=== PATIENT | female | born 1990 | race Caucasian/White ===

== ENCOUNTER 2016-12-02 12:00 | Outpatient (CLI) | payer OTHER ==
[~2016-12-02] VITALS: Ht 165.1 cm; Wt 98.1 kg
[~2016-12-02 12:00] MED LIST: ESCI20TA10 PO; FERR325T63 PO; IBUP800T PO; OXYC-302 PO; PREN1TAB52 PO; SENN-25 PO
[2016-12-02 12:10] VITALS: BP 114/74
== END 2016-12-02 13:47 | disposition home or self-care (01) ==
LOC: LDOP 12:00
PROVIDERS: ATTEND Obstetrics & Gynecology
DX: O26.893 Other specified pregnancy related conditions, third trimester (principal); R10.9 Unspecified abdominal pain; R10.2 Pelvic and perineal pain; Z3A.28 28 weeks gestation of pregnancy
CPT/HCPCS: 36415; 59025; 81001; 82731; 87077; 87086; 87186; 99211; G0463

== ENCOUNTER 2017-01-04 11:35 | Outpatient (CLI) | payer OTHER ==
[~2017-01-04] VITALS: Ht 167.6 cm; Wt 65.9 kg
[2017-01-04 11:50] VITALS: BP 111/54
[2017-01-04 12:13] LABS: AMNISURE NEGATIVE (NEGATIVE)
[2017-01-04 12:14] LABS: AMNI OBC PASS
[2017-01-04] MEDS ORDERED: TERBUTALINE 1 MG/ML, 1ML ONE (12:27)
[2017-01-04] MEDS ORDERED: TERBUTALINE 1 MG/ML, 1ML SQ ONE (12:30)
== END 2017-01-04 13:25 | disposition home or self-care (01) ==
LOC: LDOP 11:35
PROVIDERS: ATTEND Obstetrics & Gynecology
DX: O42.913 Preterm premature rupture of membranes, unspecified as to length of time between rupture and onset of labor, third trimester (principal); Z3A.33 33 weeks gestation of pregnancy
CPT/HCPCS: 59025; 84112; 96372; 99211; J3105; G0463

== ENCOUNTER 2017-01-19 20:34 | Outpatient (CLI) | payer OTHER ==
[~2017-01-19] VITALS: Ht 167.6 cm; Wt 65.9 kg
[2017-01-19 21:04] LABS: PATH.CAST-FLAG NOT PRESENT; SPERM-FLAG NOT PRESENT; SRC-FLAG NOT PRESENT; XTAL-FLAG NOT PRESENT; YLC-FLAG NOT PRESENT
[2017-01-19 21:15] VITALS: BP 120/69
[2017-01-19 21:23] LABS: AMNI OBC PASS; AMNISURE NEGATIVE (NEGATIVE)
[2017-01-19] MEDS ORDERED: PROMETHAZINE 25 MG/ML, 1ML IM ONE (22:00)
[2017-01-19] MEDS ORDERED: MEPERIDINE/PF 50 MG/ML IM PRN (22:00)
[2017-01-19] MEDS ORDERED: NITR100C56 PO (22:05)
[2017-01-19] MEDS ORDERED: MEPERIDINE/PF 100 MG/ML ONE (22:09)
[2017-01-19] MEDS ORDERED: PROMETHAZINE 25 MG/ML, 1ML ONE (22:09)
== END 2017-01-19 22:20 | disposition home or self-care (01) ==
LOC: LDOP 20:34
PROVIDERS: ATTEND Obstetrics & Gynecology
DX: O26.893 Other specified pregnancy related conditions, third trimester (principal); O62.9 Abnormality of forces of labor, unspecified; O99.513 Diseases of the respiratory system complicating pregnancy, third trimester; R10.9 Unspecified abdominal pain; J45.909 Unspecified asthma, uncomplicated; Z3A.35 35 weeks gestation of pregnancy
CPT/HCPCS: 59025; 81001; 84112; 87081; 87086; 99211; J2175; J2550; G0463

== ENCOUNTER 2017-01-27 11:28 | Outpatient (CLI) | payer OTHER ==
[~2017-01-27] VITALS: Ht 167.6 cm; Wt 66.3 kg
[~2017-01-27 11:28] MED LIST changes: +IBUP-1223 PO; -IBUP800T PO; +NITR100C56 PO
[2017-01-27 11:39] VITALS: BP 110/64
[2017-01-27] MEDS ORDERED: BETAMETHASONE 6 MG/ML, 5ML IM ONE (11:54)
[2017-01-27] MEDS ORDERED: BETAMETHASONE 6 MG/ML, 5ML IM SCH (12:00)
[2017-01-27] MEDS ORDERED: MEPERIDINE/PF 100 MG/ML ONE (14:20)
[2017-01-27] MEDS ORDERED: PROMETHAZINE 25 MG/ML, 1ML ONE (14:21)
[2017-01-27] MEDS ORDERED: PROMETHAZINE 25 MG/ML, 1ML IM ONE (14:30)
[2017-01-27] MEDS ORDERED: MEPERIDINE/PF 50 MG/ML IM PRN (14:30)
== END 2017-01-27 14:42 | disposition home or self-care (01) ==
LOC: LDOP 11:28
PROVIDERS: ATTEND Obstetrics & Gynecology
DX: O26.893 Other specified pregnancy related conditions, third trimester (principal); O21.9 Vomiting of pregnancy, unspecified; O62.9 Abnormality of forces of labor, unspecified; O99.513 Diseases of the respiratory system complicating pregnancy, third trimester; J45.909 Unspecified asthma, uncomplicated; R10.9 Unspecified abdominal pain; Z3A.36 36 weeks gestation of pregnancy
CPT/HCPCS: 59025; 96372; 99211; J0702; J2175; J2550; G0463

== ENCOUNTER 2017-02-09 11:07 | Outpatient (CLI) | payer OTHER ==
[~2017-02-09] VITALS: Ht 167.6 cm; Wt 68.2 kg
[2017-02-09 11:39] VITALS: BP 109/60
== END 2017-02-09 12:11 | disposition home or self-care (01) ==
LOC: LDOP 11:07
PROVIDERS: ATTEND Obstetrics & Gynecology
DX: O26.893 Other specified pregnancy related conditions, third trimester (principal); O99.513 Diseases of the respiratory system complicating pregnancy, third trimester; R10.9 Unspecified abdominal pain; J45.909 Unspecified asthma, uncomplicated; Z3A.35 35 weeks gestation of pregnancy
CPT/HCPCS: 59025; 99211; G0463

== ENCOUNTER 2017-02-16 05:39 | Inpatient (IN) | payer OTHER ==
[~2017-02-16] VITALS: Ht 167.6 cm; Wt 69.0 kg
[2017-02-16] MEDS ORDERED: OXYTOCIN 30U/ 0.9% NaCL 500ML 500 ML IV PRN (05:40)
[2017-02-16] MEDS ORDERED: OXYTOCIN 30U/ 0.9% NaCL 500ML 500 ML IV ONE (05:40)
[2017-02-16] MEDS ORDERED: D5%-LACTATED RINGERS 1,000 ML IV SCH (05:40)
[2017-02-16 05:55] VITALS: BP 108/64
[2017-02-16] MEDS ORDERED: SODIUM CITRATE/CITRIC ACID 30 ML UDC PO PRN (06:00)
[2017-02-16] MEDS ORDERED: ONDANSETRON 2MG/ML, 2ML IVPush PRN (06:00)
[2017-02-16] MEDS ORDERED: CALCIUM CARBONATE 500 MG TAB.CHEW PO PRN (06:00)
[2017-02-16] MEDS ORDERED: FENTANYL PF 100 MCG/2ML IVPush PRN (06:00)
[2017-02-16] MEDS ORDERED: TERBUTALINE 1 MG/ML, 1ML IVPush PRN ×2 (06:00)
[2017-02-16] MEDS ORDERED: FENTANYL PF 100 MCG/2ML IV PRN (06:00)
[2017-02-16] MEDS ORDERED: METOCLOPRAMIDE 5 MG/ML, 2ML IVPush PRN (06:00)
[2017-02-16] MEDS ORDERED: ALUMINUM/MAG/SIMETHICONE 30 ML UDC PO PRN (06:00)
[2017-02-16 06:08] LABS: HEMATOCRIT 29.6 % (34.6-47.8); HEMOGLOBIN 9.8 g/dL (11.7-16.4); WHITE BLOOD COUNT 6.2 x10^3/uL (3.4-10)
[2017-02-16 06:11] VITALS: BP 108/64
[2017-02-16] MEDS: LACTATED RINGERS 1,000 ML IV SCH ×3 (06:14→14:26)
[2017-02-16] MEDS ORDERED: OXYTOCIN 30U/ 0.9% NaCL 500ML 500 ML ONE (06:18)
[2017-02-16] MEDS ORDERED: PLEASE ENTER HEIGHT AND WEIGHT MC SCH (06:30)
[2017-02-16] MEDS ORDERED: CALCIUM CARBONATE 500 MG TAB.CHEW ONE (07:34)
[2017-02-16] MEDS ORDERED: BUPIVACAINE 0.25% ONE ×2 (09:52→09:57)
[2017-02-16] MEDS ORDERED: FENTANYL PF 100 MCG/2ML ONE (09:52)
[2017-02-16] MEDS ORDERED: FENTANYL/BUPIV./NS/PF 250 ML EPIDCONT ONE (09:52)
[2017-02-16] MEDS ORDERED: LIDOCAINE/PF 1.5%-EPI 1:200K, 30ML ONE (09:57)
[2017-02-16] MEDS ORDERED: ONDANSETRON 2MG/ML, 2ML ONE (10:50)
[2017-02-16] MEDS: OXYTOCIN 30U/ 0.9% NaCL 500ML 500 ML IV SCH ×2 (13:29→21:54)
[2017-02-16] MEDS ORDERED: MISOPROSTOL 200 MCG TABLET SL PRN (13:30)
[2017-02-16] MEDS ORDERED: IBUPROFEN 600 MG TABLET ONE (14:18)
[2017-02-16] MEDS: IBUPROFEN 600 MG TABLET PO PRN ×2 (14:25→20:21)
[2017-02-16 15:30] VITALS: BP 112/75
[2017-02-16] MEDS: OXYcodone/APAP 5/325MG TABLET PO PRN ×2 (15:51→20:21)
[2017-02-16 19:05] VITALS: BP 108/71
[2017-02-16] MEDS: DOCUSATE 100 MG CAPSULE PO PRN (20:21)
[2017-02-16 21:59] LABS: HEMATOCRIT 29.7 % (34.6-47.8); HEMOGLOBIN 9.8 g/dL (11.7-16.4); WHITE BLOOD COUNT 9.5 x10^3/uL (3.4-10)
[2017-02-17 00:05] VITALS: BP 108/65
[2017-02-17] MEDS: OXYcodone/APAP 5/325MG TABLET PO PRN ×3 (00:05→08:41)
[2017-02-17] MEDS: IBUPROFEN 600 MG TABLET PO PRN ×2 (02:17→07:47)
[2017-02-17 04:38] VITALS: BP 105/77
[2017-02-17] MEDS: LACTATED RINGERS 1,000 ML IV SCH (05:40)
[2017-02-17] MEDS ORDERED: PRENATAL VIT/IRON/FA 1 EACH TABLET ONE (07:44)
[2017-02-17] MEDS: DOCUSATE 100 MG CAPSULE PO PRN (07:47)
[2017-02-17 07:56] VITALS: BP_SYST 111; BP_SYST 115; BP_DIAS 74; BP_DIAS 79
[2017-02-17] MEDS ORDERED: PRENATAL VIT/IRON/FA 1 EACH TABLET PO SCH (09:00)
[2017-02-17] MEDS: OXYTOCIN 30U/ 0.9% NaCL 500ML 500 ML IV SCH (09:29)
[2017-02-17] MEDS ORDERED: IBUP-1222 PO (09:39)
[2017-02-17] MEDS ORDERED: OXYC-302 PO (09:39)
== END 2017-02-17 11:30 | disposition home or self-care (01) | DRG 775 ==
LOC: LDIP 05:39 → 2NW 15:17
PROVIDERS: ADMIT Obstetrics & Gynecology; ATTEND Obstetrics & Gynecology
PROC: 0KQM0ZZ Repair Perineum Muscle, Open Approach (ICD-10-PCS; principal; 2017-02-16)
PROC: 10E0XZZ Delivery of Products of Conception, External Approach (ICD-10-PCS; 2017-02-16)
PROC: 3E0S3CZ (ICD-10-PCS; 2017-02-16)
PROC: 00HU33Z Insertion of Infusion Device into Spinal Canal, Percutaneous Approach (ICD-10-PCS; 2017-02-16)
DX: O69.1XX0 Labor and delivery complicated by cord around neck, with compression, not applicable or unspecified (principal); O70.1 Second degree perineal laceration during delivery; Z37.0 Single live birth; Z3A.38 38 weeks gestation of pregnancy
CPT/HCPCS: 36415; 85025; 86850; 86900; J2405; J3490; J2590; J7120

== ENCOUNTER 2017-07-07 10:55 | Day surgery (SDC) | payer OTHER ==
[~2017-07-07] VITALS: Ht 162.6 cm; Wt 59.1 kg
[~2017-07-07 10:55] MED LIST changes: +IBUP-1222 PO
[2017-07-07] MEDS ORDERED: LACTATED RINGERS 1,000 ML IV SCH (11:11)
[2017-07-07 11:41] VITALS: BP 132/92
[2017-07-07 11:58] LABS: BASOPHILS # (AUTO) 0.03 x10^3/uL (0-0.1); BASOPHILS % (AUTO) 1 % (0-1); EOSINOPHILS # (AUTO) 0.47 x10^3/uL (0-0.4); EOSINOPHILS % (AUTO) 10 % (1-7); LYMPHOCYTES # (AUTO) 1.53 x10^3/uL (1-3.4); LYMPHOCYTES % (AUTO) 32 % (22-44); MD NO; MEAN CORPUSCULAR HEMOGLOBIN 29.4 pg (27.0-34.8); MEAN CORPUSCULAR HGB CONC 33.3 g/dL (32.4-35.8); MEAN CORPUSCULAR VOLUME 88.3 fL (80-100); MEAN PLATELET VOLUME 7.6 fL (7.4-10.4); MONOCYTES # (AUTO) 0.42 x10^3/uL (0.2-0.8); MONOCYTES % (AUTO) 9 % (2-9); NEUTROPHILS # (AUTO) 2.38 x10^3/uL (1.8-6.8); NEUTROPHILS % (AUTO) 49 % (42-75); PLATELET COUNT 221 x10^3/uL (130-400); RED BLOOD COUNT 4.49 x10^6/uL (3.82-5.3); RED CELL DISTRIBUTION WIDTH 15.6 % (9.6-15.2)
[2017-07-07] MEDS ORDERED: PLEASE ENTER HEIGHT AND WEIGHT MC SCH (12:00)
[2017-07-07 12:07] LABS: ANION GAP 10 mmol/L (5-15); CALCIUM 8.7 mg/dL (8.5-10.1); CHLORIDE 106 mmol/L (98-107)
[2017-07-07 12:12] LABS: CREATININE 0.59 mg/dL (0.55-1.02)
[2017-07-07] MEDS ORDERED: BUPIVACAINE/PF 0.25% ONE (12:29)
[2017-07-07] MEDS ORDERED: EPINEPHRINE 1 MG/ML, 1ML ONE (12:29)
[2017-07-07] MEDS ORDERED: SILVER NITRATE STICK TP ONE ×2 (12:30→13:19)
[2017-07-07] MEDS ORDERED: MIDAZOLAM 1 MG/ML, 2ML ONE (12:30)
[2017-07-07] MEDS ORDERED: FENTANYL PF 250 MCG/5ML ONE (12:30)
[2017-07-07] MEDS ORDERED: PROPOFOL 10 MG/ML, 20ML ONE (12:31)
[2017-07-07] MEDS ORDERED: ROCURONIUM 10 MG/ML,10ML ONE (12:31)
[2017-07-07] MEDS ORDERED: SODIUM CHLORIDE 0.9% PF 10ML ONE (12:32)
[2017-07-07] MEDS ORDERED: CEFAZOLIN 1,000 MG ONE ×2 (12:32)
[2017-07-07] MEDS ORDERED: GLYCOPYRROLATE 0.4 MG/2 ML, 2ML ONE ×2 (12:32)
[2017-07-07] MEDS ORDERED: NEOSTIGMINE 1 MG/ML, 10ML ONE (12:32)
[2017-07-07] MEDS ORDERED: DEXAMETHASONE 4 MG/ML, 1ML ONE ×2 (12:33)
[2017-07-07] MEDS ORDERED: ONDANSETRON 2MG/ML, 2ML ONE (12:33)
[2017-07-07] MEDS ORDERED: PROMETHAZINE 25 MG/ML, 1ML IV PRN (13:00)
[2017-07-07] MEDS ORDERED: FENTANYL PF 100 MCG/2ML IV PRN (13:00)
[2017-07-07] MEDS ORDERED: ACETAMINOPHEN 325 MG TABLET PO PRN (13:00)
[2017-07-07] MEDS ORDERED: MEPERIDINE/PF 25MG/0.5ML IVPush PRN (13:00)
[2017-07-07] MEDS ORDERED: ONDANSETRON 2MG/ML, 2ML IVPush PRN (13:00)
[2017-07-07] MEDS ORDERED: OXYcodone 5 MG/5 ML ORAL.SOL UDC PO PRN (13:00)
[2017-07-07] MEDS ORDERED: HYDROmorphone 1 MG/ML, 1ML IV PRN (13:00)
[2017-07-07] MEDS ORDERED: BUPIVACAINE/PF 0.25% INFIL ONE (13:07)
[2017-07-07] MEDS ORDERED: FENTANYL PF 100 MCG/2ML ONE (13:37)
[2017-07-07] MEDS ORDERED: OXYcodone 5 MG/5 ML ORAL.SOL UDC ONE (13:37)
[2017-07-07] MEDS ORDERED: ACETAMINOPHEN 650 MG/20.3 ML UDC ONE (13:37)
== END 2017-07-07 15:20 ==
LOC: OUT 10:55
PROVIDERS: ATTEND Obstetrics & Gynecology
DX: Z30.2 Encounter for sterilization (principal); Z64.1 Problems related to multiparity; J45.909 Unspecified asthma, uncomplicated; F32.9 Major depressive disorder, single episode, unspecified; G43.909 Migraine, unspecified, not intractable, without status migrainosus; Z98.890 Other specified postprocedural states; Z91.040 Latex allergy status
CPT/HCPCS: 36415; 58670; 80048; 84702; 85025; J0171; J0690; J1100; J2250; J2405; J2704; J2710; J3010; J3490; J7120